=== PATIENT | female | born 1990 | race American Indian/Alaskan Native ===

== ENCOUNTER 2016-07-21 12:56 | Emergency (ER) | payer MEDICAID ==
[2016-07-21 13:40] LABS: Bilirubin,Urine NEG (Negative); Blood,Urine NEG (Negative); Ketones,Urine NEG (Negative); Leukocyte Esterase,Urine TR (Negative); Mucus,Urine 2+ /HPF; Nitrite,Urine NEG (Negative); Protein,Urine <15 mg/dL mg/dL (Negative); Urobilinogen,Urine < 2.0 mg/dL (<2.0)
--- NOTE | 2016-07-21 15:15 | Emergency Department Report ---
Chief Complaint: Urogenital-Female Stated Complaint: EYE PROBLEMS/ABD PAIN Time Seen by Provider: 07/21/16 15:11 - HPI History of Present Illness: PT states she is on Depo. PT's last Depo injection 04-07. PT reports pelvic pain. pt denies vaginal bleeding. - Exam Vital Signs: Vital Signs 07/21/16 13:03 Temperature 98.3 F Pulse Rate 100 H Respiratory 19 Rate Blood Pressure 140/81 O2 Sat by Pulse 100 Oximetry Physical Exam: PT looks well, non toxic. pt aware of lab results. pt's abd soft with suprapubic tenderness MSE screening note: Focused history and physical exam performed. Due to findings the following was ordered: labs, us ED Disposition for MSE Condition: Stable
[2016-07-21 16:01] LABS: Alanine Aminotransferase 12 units/L (7-56); Albumin 3.9 g/dL (3.9-5); Albumin/Globulin Ratio 1.2 %; Alkaline Phosphatase 45 units/L (35-129); Anion Gap 20 mmol/L; Bilirubin,Total 0.3 mg/dL (0.1-1.2); Blood Urea Nitrogen 8 mg/dL (7-17); Calcium 9.1 mg/dL (8.4-10.2); Carbon Dioxide 21 mmol/L (22-30); Glucose 86 mg/dL (65-100); Potassium 3.9 mmol/L (3.6-5.0); Sodium 136 mmol/L (137-145); Total Protein 7.2 g/dL (6.3-8.2)
[2016-07-21 16:28] LABS: Basophils % (Auto) 0.4 % (0.0-1.8); Eosinophils % (Auto) 0.5 % (0.0-4.3); Hematocrit 41.3 % (30.3-42.9); Hemoglobin 13.4 gm/dl (10.1-14.3); Mean Corpuscular HGB Conc 32 % (30-34); Mean Corpuscular Hemoglobin 26 pg (28-32); Mean Corpuscular Volume 81 fl (79-97); Platelet Count 193 K/mm3 (140-440); Red Blood Count 5.12 M/mm3 (3.65-5.03); Red Cell Distribution Width 14.4 % (13.2-15.2); White Blood Count 7.4 K/mm3 (4.5-11.0)
--- NOTE | 2016-07-21 16:29 | Ultrasound Report ---
Transvaginal and transabdominal OB ultrasound. Findings: A single intrauterine is identified. The crown-rump length measures 2.4 cm which corresponds to a gestational age of 9 weeks one day. The heart rate measures 172 beats per minute. There is no evidence of subchorionic hemorrhage. The right ovary is normal. A 2.6 cm sonolucency is seen in the left ovary. Impression: 1. Viable IUP at 9 weeks one day gestation. 2. Left corpus luteum cyst.
--- NOTE | 2016-07-21 17:42 | Emergency Department Report ---
HPI - General Chief Complaint: Urogenital-Female Time Seen by Provider: 07/21/16 15:11 - HPI HPI: This is a 25-year-old female who presents to ED complaining of low pelvic pain 1 week. Patient describes pain as crampy type feeling achy in nature. Patient admits intermittent vomiting that started Tuesday. Patient denies vaginal bleeding or discharge. Patient admits frequency, urinary frequency and urinary urgency. Patient also complaining of left lower rib pain and swelling times . Patient states pain has gotten worse and swelling is getting worse. Patient states this morning when she woke up she had difficulty opening her eyes due to swelling and minor yellowish crust around her eyes. Patient denies fever assess chills/nausea/vomiting/abdominal pain/vaginal bleeding. vaginal discharge, ED Past Medical Hx - Past Medical History Previous Medical History?: No - Surgical History Additional Surgical History: - Social History Smoking Status: Never Smoker Substance Use Type: None - Medications Home Medications: Home Medications Medication Instructions Recorded Confirmed Last Taken Type Acetaminophen [Acetaminophen ER 650 mg PO Q8HR PRN #30 tablet.er 07/21/16 Unknown Rx TAB] Bacitracin [Bacitracin Ophth] 1 applicatio OP BID #1 tube 07/21/16 Unknown Rx Doxylamine/Pyridoxine HCl 1 each PO QHS #30 tablet. 07/21/16 Unknown Rx [Alfredo Perez 10-10 mg Tablet] Pnv95/Ferrous Fumarate/FA 1 each PO DAILY #40 tablet 07/21/16 Unknown Rx [ Formula Tablet] ED Review of Systems ROS: Stated complaint: EYE PROBLEMS/ABD PAIN Other details as noted in HPI Constitutional: denies: chills, fever, weakness Eyes: denies: eye pain, eye discharge, vision change ENT: denies: ear pain, throat pain, dental pain, hearing loss Respiratory: denies: cough, shortness of breath, SOB with exertion, SOB at rest , stridor, wheezing Cardiovascular: denies: chest pain, palpitations Endocrine: no symptoms reported Gastrointestinal: vomiting. denies: abdominal pain, nausea, diarrhea, constipation, hematemesis, hematochezia Genitourinary: urgency, frequency. denies: dysuria, hematuria, discharge Musculoskeletal: denies: back pain, joint swelling, arthralgia Skin: denies: rash, lesions Neurological: denies: headache, weakness, numbness, paresthesias, confusion, abnormal gait, vertigo Psychiatric: denies: anxiety, depression Hematological/Lymphatic: denies: easy bleeding, easy bruising Physical Exam - Physical Exam Vital Signs: Vital Signs 07/21/16 13:03 Temperature 98.3 F Pulse Rate 100 H Respiratory 19 Rate Blood Pressure 140/81 O2 Sat by Pulse 100 Oximetry Physical Exam: GENERAL: Alert and oriented x3, no apparent distress, Normal Gait, atraumatic. HEAD: Head is normocephalic and a-traumatic. EYES: Extra ocular muscles are intact. Pupils are equal, round, and reactive to light and accommodation. Left lower lead moderate edema and tenderness to palpation. Sclerae are clear bilaterally EARS: symetrical, atraumatic, non tender, gross auditory nml bilaterally. NOSE: Nose symetrical, Nontender,Nares appeared normal. MOUTH:Mouth is well hydrated and without lesions. Tonsils nonerythematous or swollen, Uvula midline, Tongue not elevated. Mucous membranes are moist. Posterior pharynx clear, no exudate or lesions. Patent airways. NECK: Supple. Non edematous, No carotid bruits. No lymphadenopathy or thyromegaly. LUNGS: Symetrical with respiration, No wheezing, no rales or crackles, CTAB. HEART: S1, S2 present, regular rate and rhythm without murmur, no rubs, no gallops. ABDOMEN: No organomegaly was noted,Positive bowel sounds, soft, and non- distended. . Nontender to palpation on all Quadrants, NO CVA tenderness. EXTREMITIES/MUSCULOSKELETAL: No cyanosis, clubbing, rash, lesions or edema. Full ROM bilaterally. UE/LE Pulses 2+ bilaterally. NEUROLOGIC: No focal Deficit, Cranial nerves II through XII are grossly intact. No loss of sensation, PSYCHIATRIC: Mood is congruent with affect, denies suicidal or homicidal ideations. SKIN: Warm and dry, No lesions, No ulceration or induration present. ED Course Vital Signs 07/21/16 13:03 Temperature 98.3 F Pulse Rate 100 H Respiratory 19 Rate Blood Pressure 140/81 O2 Sat by Pulse 100 Oximetry ED Medical Decision Making - Lab Data Result diagrams: 07/21/16 15:25 07/21/16 15:25 - Medical Decision Making 25-year-old female presents incidentally urine / an hordeolum ED course: CBC, BMP, ultrasound CBC and BMP within normal limits. test positive with beta quant level of >61,000. OB ultrasound: Viable intrauterine pisano at 9 weeks and 1 day gestation. heart tone of 172 bpm Discussed findings with patient. Patient was just percent if results. Patient wasn't clear that she was . Discussed uterine ligament pain and Discussed the patient and follow up with OB as referred. Patient states she will call tomorrow to get an appointment. Discussed with patient antibiotic therapy for eyelid infection. Discussed vitamins daily, take diclegis for nausea, Tylenol for pain. Critical care attestation.: If time is entered above; I have spent that time in minutes in the direct care of this critically ill patient, excluding procedure time. ED Disposition Clinical Impression: IUP (intrauterine ), incidental, Hordeolum externum of left lower eyelid Normal IUP (intrauterine ) on ultrasound Qualifiers: Trimester: first trimester Qualified Code(s): Z34.91 - Encounter for supervision of normal , unspecified, first trimester Disposition: DISCHARGED TO HOME OR SELFCARE Is pt being admited?: No Does the pt Need Aspirin: No Condition: Stable Instructions: Stye (ED), (ED), Morning Sickness (ED) Prescriptions: Doxylamine/Pyridoxine HCl [Diclegis Dr 10-10 mg Tablet] 1 each PO QHS #30 tablet. Acetaminophen [Acetaminophen ER TAB] 650 mg PO Q8HR PRN #30 tablet.er PRN Reason: Pain Bacitracin [Bacitracin Ophth] 1 applicatio OP BID #1 tube Pnv95/Ferrous Fumarate/FA [ Formula Tablet] 1 each PO DAILY #40 tablet Referrals: PRIMARY CARE, [Primary Care Provider] - 3-5 Days MICKEY HOFFMANN MD [Referring] - 3-5 Days DOE LYMAN MD [Referring] - 3-5 Days RANDALL LYMAN MD [Staff Physician] - 3-5 Days [facility] [Outside] - 3-5 Days [facility] [Outside] - 3-5 Days Forms: Work/School Release Form(ED) Time of Disposition: 17:57
[2016-07-21 18:10] VITALS: BP 136/78
== END 2016-07-21 18:08 | disposition home or self-care (01) ==
LOC: ED 12:56
DX: O26.891 Other specified pregnancy related conditions, first trimester (principal); H00.015 Hordeolum externum left lower eyelid; Z3A.01 Less than 8 weeks gestation of pregnancy
CPT/HCPCS: 36415; 76801; 76817; 80053; 81001; 81025; 84702; 85025; 86900; 86901

== ENCOUNTER 2021-09-29 09:03 | Emergency (ER) | payer MEDICAID ==
[2021-09-29 10:05] VITALS: BP 111/59
== END 2021-09-29 19:00 | disposition left against medical advice (07) ==
LOC: ED 09:03
DX: R07.9 Chest pain, unspecified (principal); Z53.21 Procedure and treatment not carried out due to patient leaving prior to being seen by health care provider